=== PATIENT | male | born 1975 | race Caucasian/White ===

== ENCOUNTER 2025-04-18 06:22 | Day surgery (SDC) | payer OTHER, SELFPAY ==
[2025-04-18] VITALS (7 sets, daily range): BP systolic 138–153; BP diastolic 73–87; BMI 44.5
[2025-04-18] MEDS: NORMOSOL-R/PLASMALYTE-A 1000 IV (08:49)
[2025-04-18] MEDS: DILAUDID 0.25 MG IV (12:27)
== END 2025-04-18 13:35 | disposition home or self-care (01) ==
LOC: SDS 06:22
PROVIDERS: ATTENDING PHYSICIAN Otolaryngology
DX: J32.0 Chronic maxillary sinusitis (principal); J32.2 Chronic ethmoidal sinusitis; J34.2 Deviated nasal septum; J34.3 Hypertrophy of nasal turbinates; G47.33 Obstructive sleep apnea (adult) (pediatric); J45.909 Unspecified asthma, uncomplicated; J33.9 Nasal polyp, unspecified; J34.89 Other specified disorders of nose and nasal sinuses; F17.290 Nicotine dependence, other tobacco product, uncomplicated
CPT/HCPCS: 31255; 31267; 30140; 30520; 42400; 88304; 88305; 88311